=== PATIENT | male | born 1950 | race Caucasian/White ===

== ENCOUNTER → 2018-07-09 | Day surgery (SDC) | payer MEDICARE ==
[2018-07-08 12:46] VITALS: BMI 29.5
[~2018-07-09] MED LIST: Lidocaine 1% PF 5 ML VIAL ONE; PROPOFOL 200 MG/20 ML VIAL ONE
--- NOTE | 2018-07-09 10:18 | OP ---
DATE OF PROCEDURE: 07/09/2018 PREOPERATIVE DIAGNOSIS: A 68-year-old male comes for colonoscopy for colon cancer screening. POSTOPERATIVE DIAGNOSES: 1. Sessile polyp, transverse colon, removed with biopsy forceps. 2. Sessile polyps x2, sigmoid colon, status post polypectomy with snare cautery with good hemostasis. 3. Occasional sigmoid diverticular disease. DESCRIPTION OF PROCEDURE: The patient was placed on his left lateral position and was given sedation by Anesthesia Department. A rectal exam was done and the scope was advanced into the rectum. No lesions felt on rectal exam. A Pentax video colonoscope was introduced into the rectum and advanced all the way into the cecum. In the ileocecal area, cecum, ascending colon, no pathology seen. The hepatic flexure, no pathology seen. The transverse colon showed a small sessile polyp. This was easily removed by forceps. The remainder of transverse colon, splenic flexure, descending colon, no pathology seen. Over the lower sigmoid colon, the patient was found to have two sessile polyps. Both were removed with snare cautery with good hemostasis. Retroflexion of scope in the rectum showed no pathology. DISCHARGE PLANNING: This is a 68-year-old male referred to me by Dr. Kojo Ayala for colonoscopy for colon cancer screening. The patient underwent colonoscopy with polypectomy. DISCHARGE RECOMMENDATIONS: 1. The patient was advised to call me if he develops abdominal pain or hematochezia. 2. In the absence of any of the above symptoms, come back to me in 2 weeks. Job ID: [id number]
== END ==
LOC: SDC 06:59
PROVIDERS: ATTEND Internal Medicine Gastroenterology
PROC: 0DBN8ZX Excision of Sigmoid Colon, Via Natural or Artificial Opening Endoscopic, Diagnostic (ICD-10-PCS; principal; 2018-07-09)
PROC: 0DBL8ZX Excision of Transverse Colon, Via Natural or Artificial Opening Endoscopic, Diagnostic (ICD-10-PCS; 2018-07-09)
DX: Z12.11 Encounter for screening for malignant neoplasm of colon (principal); D12.3 Benign neoplasm of transverse colon; K63.5 Polyp of colon; K57.30 Diverticulosis of large intestine without perforation or abscess without bleeding; I10 Essential (primary) hypertension; E11.9 Type 2 diabetes mellitus without complications; Z79.84 Long term (current) use of oral hypoglycemic drugs; Z79.899 Other long term (current) drug therapy
CPT/HCPCS: 88305; J2001; J2704

== ENCOUNTER 2018-07-24 15:13 | Observation (INO) | payer MEDICARE ==
[2018-07-24] MEDS ORDERED: Senokot S 8.6-50 MG TAB PO PRN (18:04)
[2018-07-24] MEDS ORDERED: Acetaminophen 325 MG TAB PO PRN ×2 (18:04→20:09)
[2018-07-24] MEDS ORDERED: HYDROcodone/Acetaminophen 5/325 mg Tablet PO PRN (18:04)
[2018-07-24] MEDS ORDERED: Dextrose 50% Abboject 50 ML SYRINGE SLOW IVP PRN (18:56)
[2018-07-24] MEDS ORDERED: Dextrose 5% in Water 1,000 ML IV PRN (18:56)
[2018-07-24] MEDS ORDERED: HumaLOG 300 UNITS/3 ML VIAL SC PRN (18:56)
[2018-07-24] MEDS ORDERED: Ondansetron PF 4 MG/2 ML Vial IVP PRN (20:09)
[2018-07-24] MEDS ORDERED: Ondansetron ODT 4 MG TAB SL PRN (20:09)
[2018-07-24 20:41] LABS: Troponin I Less than 0.010 ng/mL (< 0.028)
[2018-07-24] MEDS: Famotidine 20 MG TAB PO SCH (21:16)
[2018-07-24 22:05] VITALS: BMI 29.7
[2018-07-25 00:02] LABS: Troponin I Less than 0.010 ng/mL (< 0.028)
--- NOTE | 2018-07-25 00:36 | HP ---
PRIMARY CARE PHYSICIAN: Dr. Ayala. HISTORY OF PRESENT ILLNESS: Mr. 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 Reports when he got out, he noticed that he was weak on his left side. Reports weakness, numbness, tingling left arm, left leg. Reported symptoms lasted for about 30 minutes and resolved while he was in the emergency room in [place]. PAST MEDICAL HISTORY: Hypertension, hyperlipidemia, type 2 diabetes. Denies previous cardiac history. Denies stroke. Denies family history of either of those. The patient was given aspirin. CT of the brain while in [place] which showed no evidence of acute intracranial abnormality. The patient also had a CTA of the neck and head. Impression; 1. Mild bilateral internal carotid artery stenosis. 2. 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 3. No significant intracranial occlusion. The patient was subsequently transferred to [facility] ER for admission for TIA. The patient denies any current symptoms. Denies any dizziness, headache, current weakness, numbness, tingling on any of his extremities. NIH scale is zero. The patient will be admitted to the stroke unit for further management. PAST MEDICAL HISTORY: As above, hypertension, hyperlipidemia, type 2 diabetes. PAST SURGICAL HISTORY: None. PSYCHIATRIC HISTORY: None. SOCIAL HISTORY: The patient denies alcohol or drug use. The patient was a former tobacco smoker. Reports that he quit 40 years ago. Lives at home with his family. ALLERGIES: NONE. CURRENT MEDICATIONS: 1. Atorvastatin 40 mg p.o. once a day. 2. Metformin 500 mg p.o. b.i.d. 3. Losartan and hydrochlorothiazide 100-12.5 mg daily. REVIEW OF SYSTEMS: CONSTITUTIONAL: The patient denies fatigue, fever, or malaise. Reports generalized weakness. EYES: Denies eye pain, eye changes. ENT: Denies rhinorrhea or sore throat. CARDIOVASCULAR: Denies chest pain. Denies dyspnea on exertion. Denies syncope. RESPIRATORY: Denies shortness of breath. Denies cough. GASTROINTESTINAL: Denies abdominal pain, nausea, vomiting, diarrhea, or constipation. MUSCULOSKELETAL: Reports initial muscle weakness in left upper and lower extremities lasting about 30 minutes. Denies any current weakness. Denies any current numbness or tingling. SKIN: Denies rash or skin changes. NEUROLOGIC: Currently denies any confusion, dizziness, headache. Denies any focal weakness or sensation changes. Does report had an episode of weakness to left side for about 30 minutes today. PHYSICAL EXAMINATION: VITAL SIGNS: Blood pressure 143/72, pulse is 74, respirations are 21, temperature 98.4, O2 sats are 99% on room air. CONSTITUTIONAL: The patient is alert and oriented x3. The patient appears nontoxic. HEENT: Head is atraumatic and normocephalic. Eyes, pupils are equally round and reactive to light. Extraocular muscles are intact. Conjunctiva is normal. ENT, mouth exam is normal. Mucous membranes are moist. NECK: Trachea is midline. Normal range of motion. No JVD, distention. RESPIRATORY/CHEST: Breath sounds are clear. Chest expansion is equal. CARDIOVASCULAR: Regular heart rate and rhythm. Heart sounds are normal. ABDOMEN: Nontender. Bowel sounds are heard. BACK: Normal inspection. Normal range of motion. EXTREMITIES: Lower extremities; inspection is normal. Normal range of motion. Motor strength is normal. Sensation intact. Radial pulses equal bilaterally. Lower extremities; normal inspection. Normal range of motion. Sensation is intact. Motor strength is normal. Pedal pulses are equal bilaterally. No edema is noted. NEUROLOGIC: The patient is oriented to person, place, and time. Speech is normal. Memory is normal. Cranial nerves 2 through 12 are grossly intact. There are no focal motor or sensory deficits noted. SKIN: Warm, dry, normal in color. PERTINENT LABORATORY DATA: White blood cell count is 6.1, hemoglobin is 16.2, hematocrit 50%, platelet count is 192. PT 14.1, INR 1.1, and APTT is 40.9, potassium 4.0, sodium 137, chloride 102, carbon dioxide 24, gap is 15, BUN is 25, creatinine is 1.21, estimated GFR is 59, glucose is 142. Liver enzymes are unremarkable. Troponin x2 is undetectable. ASSESSMENT AND PLAN: 1. Transient ischemic attack symptoms, we will order an echocardiogram, MRI of the brain without contrast. We will ask Stroke Team to evaluate. 2. Hypertension. We will restart home medications. We will trend. 3. Hyperlipidemia. We will check lipids in the morning. Restart his medication. 4. Diabetes. We will restart start his medication. We will cover with sliding scale as needed. We will check blood sugars before meals and at bedtime. 5. Deep venous thrombosis and gastrointestinal prophylaxis will be started. 6. Hospital course will be dependent on clinical findings. Job ID: [id number]
[2018-07-25 05:34] LABS: #Eosinphils 0.3 thou/uL (0.0-0.7); #Lymphocytes 1.5 thou/uL (1.20-3.40); #Monocytes 0.4 thou/uL (0.11-0.59); #Neutrophils 3.2 thou/uL (1.40-6.50); %Basophils 0.6 % (0.0-1.0); %Eosinophils 5.7 % (0.0-10.0); %Lymphocytes 27.6 % (21.0-51.0); %Monocytes 7.7 % (0.0-10.0); %Neutrophils 58.5 % (42.0-75.0); Mean Corpuscular HGB CONC 32.1 g/dL (32.0-36.0); Mean Corpuscular Hemoglobin 30.7 pg (27.0-31.0); Mean Corpuscular Volume 95.5 fL (78.0-98.0); Mean Platelet Volume 7.9 fL (7.4-10.4); Platelet Count 180 thou/uL (130-400); RBC Distribution Width 11.8 % (11.5-14.5); Red Blood Cell (RBC) Count 4.88 mill/uL (4.70-6.10); White Blood Cell (WBC) Count 5.4 thou/uL (4.8-10.8)
[2018-07-25 05:53] LABS: Anion Gap 13 mmol/L (10-20); BUN (Urea Nitrogen) 23 mg/dL (8.4-25.7); Calc. Creatinine Clearance 93 mL/min (70-130); Calcium 9.2 mg/dL (7.8-10.44); Carbon Dioxide 23 mmol/L (23-31); Cardiac Risk 5.2 (Less than 4.5); Chloride 103 mmol/L (98-107); Cholesterol 165 mg/dl (< 200 Desired); Estimated GFR-MDRD 67; Glucose 145 mg/dL (80-115); HDL Cholesterol 32 mg/dL (>60 Neg Risk); LDL Cholesterol, Calculated 91 mg/dL; Magnesium 2.2 mg/dL (1.6-2.6); Sodium 135 mmol/L (136-145); Triglycerides 211 mg/dL (Less than 150)
[2018-07-25] MEDS ORDERED: Enoxaparin Sodium 40 MG/0.4 ML SYRINGE SC SCH (09:00)
[2018-07-25] MEDS ORDERED: Aspirin 325 MG TAB PO SCH (09:00)
[2018-07-25] MEDS: Famotidine 20 MG TAB PO SCH (09:06)
--- NOTE | 2018-07-25 10:58 | MRI ---
MRI BRAIN WITHOUT CONTRAST: Date: 07/25/18 HISTORY: TIA, left-sided weakness. FINDINGS: Correlation made with CT brain of previous day. No restricted diffusion seen. There are a few foci of T2 prolongation in the periventricular white ma tter consistent with minimal chronic small vessel ischemic disease. No evidence of infarct, hemorrhag e, midline shift, or abnormal extra-axial fluid collections are seen. The ventricular size is appropr iate and the basilar cisterns are patent. There is mucosal disease in the paranasal sinuses. IMPRESSION: No evidence of acute intracranial process. POS: C
[2018-07-25 16:09] VITALS: BP 160/86; TEMP 97.9
--- NOTE | 2018-07-25 17:31 | HP ---
The patient presented with neurological symptoms on the left side of his body. His current physical exam reveals no neurological defect. Cranial nerves 2 through 12 are intact. Deep tendon reflexes symmetric. Sensation intact. MRI was done, which revealed no acute abnormality. His aspirin was changed from 81 mg a day intermittently to 325 mg a day. He is on statin. He is being discharged to follow up with his PCP. Job ID: [id number]
[2018-07-25] MEDS ORDERED: Atorvastatin Calcium 40 MG TAB PO SCH (21:00)
== END 2018-07-25 18:10 | disposition home or self-care (01) ==
LOC: ERS 15:13 → 2SE 17:15
PROVIDERS: ADMIT Emergency Medicine; ATTEND Emergency Medicine
DX: R53.1 Weakness (principal); R20.0 Anesthesia of skin; R20.2 Paresthesia of skin; I10 Essential (primary) hypertension; E78.5 Hyperlipidemia, unspecified; I65.23 Occlusion and stenosis of bilateral carotid arteries; E11.9 Type 2 diabetes mellitus without complications; Z87.891 Personal history of nicotine dependence; Z79.84 Long term (current) use of oral hypoglycemic drugs; Z79.899 Other long term (current) drug therapy
CPT/HCPCS: 70551; 80048; 80061; 82962 ×2; 83735; 84443; 84484; 85025; 93306; 96372; 97139 ×4; 99285; G0378 ×2; 36415; 36416; J1650

== ENCOUNTER 2019-10-17 06:46 | Outpatient (CLI) | payer MEDICARE, OTHER ==
[2019-10-17 16:56] LABS: Hemoglobin 14.6 g/dL (14.0-18.0); Mean Corpuscular HGB CONC 32.5 g/dL (32.0-36.0); Mean Corpuscular Hemoglobin 31.1 pg (27.0-31.0); Mean Corpuscular Volume 95.8 fL (78.0-98.0); Mean Platelet Volume 8.5 fL (7.4-10.4); Platelet Count 195 thou/uL (130-400); RBC Distribution Width 12.3 % (11.5-14.5); Red Blood Cell (RBC) Count 4.71 mill/uL (4.70-6.10)
[2019-10-17 17:05] LABS: Bilirubin Negative (Negative); Blood, Urine 1+ (Negative); Clarity Clear (Clear); Glucose, Urine (Dipstick) Normal (Negative); Leukocyte 75 Leu/uL (Negative); Nitrite Negative (Negative); Protein, Urine (Dipstick) 20 mg/dL (Neg-Trace); RBC/HPF 21-50 HPF (0-3); Squamous Epithelial 0-3 HPF (0-3); Urobilinogen Normal mg/dL (Less than 2)
[2019-10-17 17:06] LABS: Bacteria/HPF 1+ HPF (None Seen)
[2019-10-17 17:14] LABS: Anion Gap 13 mmol/L (10-20); BUN (Urea Nitrogen) 31 mg/dL (8.4-25.7); Calc. Creatinine Clearance 0 mL/min (70-130); Calcium 9.3 mg/dL (7.8-10.44); Carbon Dioxide 25 mmol/L (23-31); Chloride 103 mmol/L (98-107); Estimated GFR-MDRD 56; Glucose 111 mg/dL (80-115); Potassium 3.7 mmol/L (3.5-5.1); Sodium 137 mmol/L (136-145)
[2019-10-18 17:20] LABS: SARS-CoV-2 MS2 Positive; SARS-CoV-2 N Gene Negative; SARS-CoV-2 S Gene Negative; SARS-CoV-2 orf1ab Negative
== END 2019-10-17 06:47 | disposition home or self-care (01) ==
LOC: LABBT 06:46
PROVIDERS: ATTEND Urology
DX: Z01.818 Encounter for other preprocedural examination (principal); Z11.59 Encounter for screening for other viral diseases; N40.1 Benign prostatic hyperplasia with lower urinary tract symptoms
CPT/HCPCS: 80048; 81001; 85027; 87077; 87086; 87186; 93005; U0003; 87635; 93010

== ENCOUNTER 2019-10-21 05:48 | Observation (INO) | payer MEDICARE ==
[2019-10-21] MEDS ORDERED: Levofloxacin 500 mg/D5W 100 ml Premix Bag ONE (06:28)
[2019-10-21] MEDS ORDERED: Fentanyl 100 MCG/2 ML VIAL ONE (07:10)
[2019-10-21] MEDS ORDERED: Lidocaine 2% Jelly 5 ML TUBE ONE (07:10)
[2019-10-21] MEDS ORDERED: hydrALAZINE 20 MG/ML VIAL SLOW IVP PRN (08:53)
[2019-10-21] MEDS ORDERED: HYDROcodone/Acetaminophen 5/325 mg Tablet PO PRN (08:53)
[2019-10-21] MEDS ORDERED: Promethazine 25 MG TAB PO PRN (08:53)
[2019-10-21] MEDS ORDERED: Zolpidem Tartrate 5 MG TAB PO PRN (08:53)
[2019-10-21] MEDS ORDERED: diphenhydrAMINE 50 MG/ML VIAL IVP PRN (08:53)
[2019-10-21] MEDS ORDERED: Ondansetron PF 4 MG/2 ML Vial IVP PRN (08:53)
[2019-10-21] MEDS ORDERED: Morphine 4 MG/ML VIAL SLOW IVP PRN (08:53)
[2019-10-21] MEDS ORDERED: Oxybutynin 5 MG TAB PO PRN (08:53)
[2019-10-21 09:44] VITALS: BMI 29.5
[2019-10-21] MEDS ORDERED: Lidocaine 1% PF 5 ML VIAL ONE (12:28)
[2019-10-21] MEDS ORDERED: Ondansetron PF 4 MG/2 ML Vial ONE (12:28)
[2019-10-21] MEDS ORDERED: EPHEDRINE 25 MG/5 ML SYRINGE ONE (12:28)
[2019-10-21] MEDS ORDERED: Rocuronium Bromide 10 MG/ML (10ML VIAL) ONE (12:28)
[2019-10-21] MEDS ORDERED: PROPOFOL 200 MG/20 ML VIAL ONE (12:28)
[2019-10-21] MEDS ORDERED: Glycopyrrolate 0.2 MG/ML 5 ML SYRINGE ONE (12:28)
--- NOTE | 2019-10-21 15:02 | OP ---
DATE OF PROCEDURE: 10/21/2019 PREOPERATIVE DIAGNOSIS: Enlarged prostate with lower urinary tract symptoms, urinary retention. POSTOPERATIVE DIAGNOSIS: Enlarged prostate with lower urinary tract symptoms, urinary retention. PROCEDURE PERFORMED: Transurethral resection of prostate. ANESTHESIA: General. COMPLICATIONS: None. ESTIMATED BLOOD LOSS: Minimal. SPECIMEN: Prostate chips. DESCRIPTION OF PROCEDURE: After informed consent, the patient was taken to the operating room, transferred to the table under his own power. Anesthesia was established. A time-out was performed, showing correct patient, site, and procedure. Preoperative antibiotics were administered. He was prepped and draped in the lithotomy position. I was able to easily pass the rigid resectoscope through the urethra noting normal course and caliber of the urethra into the prostate noting enlarged coapting lateral lobes with protrusion of the left lobe into the bladder as well as a large median lobe also protruding well into the bladder. The bladder was then entered and systematically examined noting moderate trabeculation without diverticula or mucosal abnormalities. Both ureters were normal in appearance. I began by resecting the median lobe and then performed a trough from the bladder neck back to verumontanum at midline. The left lobe was resected from 11 o'clock down to midline. The right lobe was then resected from 11 o'clock down to midline. The residual anterior obstructing tissue was then resected. Meticulous hemostasis was achieved. The prostate chips were removed with the [employer] evacuator. The prostatic fossa was then re-examined noting no further obstructing tissue and no active bleeding. The bladder was then re-examined noting no injury to either ureter and no remaining prostate chips in the bladder. The scope was then withdrawn and a 22-Cymraes 3-way catheter placed with 30 mL instilled in the balloon. This was connected to CBI, which was running clear as I completed the case. The patient was then awoken from anesthesia, transferred back to his hospital bed and taken to PACU in stable condition, where he will be admitted overnight for CBI. Job ID: [id number]
[2019-10-21] MEDS: metFORMIN 500 MG TAB PO SCH ×2 (16:22→17:01)
[2019-10-21] MEDS: Aspirin 81 mg Enteric Coated Tablet PO SCH (16:23)
[2019-10-21] MEDS: Docusate 100 MG CAP PO SCH ×2 (16:23→20:24)
[2019-10-21] MEDS: Famotidine/PF 20 mg/2ml Vial SLOW IVP SCH ×2 (16:23→20:24)
[2019-10-21] MEDS: Hydrochlorothiazide 25 MG TAB PO SCH (16:24)
[2019-10-21] MEDS: Ketorolac Tromethamine 30 MG/ML VIAL IVP SCH ×3 (16:24→23:11)
[2019-10-21] MEDS: Sodium Chloride 0.9% 1,000 ML IV SCH ×2 (18:34→20:24)
[2019-10-21] MEDS ORDERED: Losartan 25 MG TAB PO SCH (21:00)
[2019-10-21] MEDS ORDERED: Atorvastatin Calcium 40 MG TAB PO SCH (21:00)
[2019-10-22] MEDS: Ketorolac Tromethamine 30 MG/ML VIAL IVP SCH (05:24)
[2019-10-22] MEDS: Sodium Chloride 0.9% 1,000 ML IV SCH (06:18)
--- NOTE | 2019-10-22 08:35 | DIS ---
DATE OF ADMISSION: 10/21/2019 DATE OF DISCHARGE: 10/22/2019 CHIEF COMPLAINT: Urinary retention. HOSPITAL COURSE: The patient underwent an uncomplicated bipolar transurethral resection of prostate. There were no surgical complications. He was managed overnight with slow drip CBI without clot formation. The following morning CBI was turned off with urine remaining clear. He was having no discomfort and tolerating oral diet. He was deemed stable for discharge home at that point. Follow up next week for void trial. Regular diet. Light non-stressful activities. Resume all home medications. Postop medications include ibuprofen, Levaquin, oxybutynin, and tramadol. Job ID: [id number]
[2019-10-22 08:49] VITALS: TEMP 98.4
[2019-10-22] MEDS ORDERED: Pioglitazone HCl 45 MG TAB PO SCH (09:00)
[2019-10-22 09:17] VITALS: BP 124/64
[2019-10-22] MEDS: Hydrochlorothiazide 25 MG TAB PO SCH (09:17)
[2019-10-22] MEDS: Famotidine/PF 20 mg/2ml Vial SLOW IVP SCH (09:18)
[2019-10-22] MEDS: Aspirin 81 mg Enteric Coated Tablet PO SCH ×2 (09:18→10:23)
[2019-10-22] MEDS: metFORMIN 500 MG TAB PO SCH (09:18)
[2019-10-22] MEDS: Docusate 100 MG CAP PO SCH (09:18)
== END 2019-10-22 10:43 | disposition home or self-care (01) ==
LOC: SDC 05:48 → SURG A 09:34
PROVIDERS: ADMIT Urology; ATTEND Urology
PROC: 0VT08ZZ Resection of Prostate, Via Natural or Artificial Opening Endoscopic (ICD-10-PCS; principal; 2019-10-21)
DX: N40.1 Benign prostatic hyperplasia with lower urinary tract symptoms (principal); R33.8 Other retention of urine; I10 Essential (primary) hypertension; E11.9 Type 2 diabetes mellitus without complications; E78.00 Pure hypercholesterolemia, unspecified; K21.9 Gastro-esophageal reflux disease without esophagitis; M19.90 Unspecified osteoarthritis, unspecified site; Z79.82 Long term (current) use of aspirin; Z79.84 Long term (current) use of oral hypoglycemic drugs; Z79.899 Other long term (current) drug therapy; Z87.891 Personal history of nicotine dependence
CPT/HCPCS: 52601; 88305; 96361; 96374; 96375; 96376 ×2; G0378 ×2; J1885; J1956; J2001; J2405; J2704; J3010; S0028

== ENCOUNTER 2019-11-08 07:30 | Emergency (ER) | payer MEDICARE | END 2019-11-08 07:50 | disposition home or self-care (01) | LOC: ERS 07:30 | DX: T83.84XA Pain due to genitourinary prosthetic devices, implants and grafts, initial encounter (principal) | CPT/HCPCS: 99283 ==